=== PATIENT | male | born 1970 | race Caucasian/White ===

== ENCOUNTER 2018-11-12 15:52 | Emergency (ER) | payer MEDICAID, MEDICARE ==
[~2018-11-12] VITALS: Ht 162.6 cm; Wt 102.0 kg
[2018-11-12 16:51] LABS: BASOPHILS # (AUTO) 0.05 x10^3/uL (0-0.1); BASOPHILS % (AUTO) 1 % (0-1); EOSINOPHILS # (AUTO) 0.08 x10^3/uL (0-0.4); EOSINOPHILS % (AUTO) 1 % (1-7); LYMPHOCYTES # (AUTO) 2.27 x10^3/uL (1-3.4); LYMPHOCYTES % (AUTO) 25 % (22-44); MD NO; MEAN CORPUSCULAR VOLUME 88.2 fL (81-97); MEAN PLATELET VOLUME 7.9 fL (7.4-10.4); MONOCYTES # (AUTO) 0.47 x10^3/uL (0.2-0.8); MONOCYTES % (AUTO) 5 % (2-9); NEUTROPHILS # (AUTO) 6.21 x10^3/uL (1.8-6.8); NEUTROPHILS % (AUTO) 68 % (42-75); PLATELET COUNT 273 x10^3/uL (130-400); RED BLOOD COUNT 4.99 x10^6/uL (4.38-5.82)
--- NOTE | 2018-11-12 16:52 | NUR ---
Pt to room from lobby.
[2018-11-12 17:00] LABS: ALANINE AMINOTRANSFERASE 31 U/L (12-78); ALBUMIN 3.9 g/dL (3.4-5.0); ANION GAP 8 mmol/L (5-15); CALCIUM 8.7 mg/dL (8.5-10.1); CHLORIDE 105 mmol/L (98-107); CREATININE 0.93 mg/dL (0.7-1.3)
[2018-11-12 17:02] LABS: ALKALINE PHOSPHATASE 86 U/L (45-117); BILIRUBIN,TOTAL 0.6 mg/dL (0.2-1.0); TOTAL PROTEIN 7.2 g/dL (6.4-8.2)
--- NOTE | 2018-11-12 17:22 | NUR ---
ASSUMED CARE OF PT. PT WITH C/O INCREASED FATIGUE. 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 STATES HE NEVER GOT TREATMENT FOR THE TUMOR, BUT WAS TOLD HAVING ONE KIDNEY FULL FUNCTIONING WAS OKAY. PT DIAPHORETIC, WARM, AND PINK. MILD AMOUNT OF DISTRESS NOTED. BREATHING REGULAR AND UNLABORED. POC DISCUSSED. WILL CONTINUE TO MONITOR.
--- NOTE | 2018-11-12 17:40 | NUR ---
URINE SAMPLE COLLECT AND SENT TO LAB.
--- NOTE | 2018-11-12 18:00 | NUR ---
PT TO US VIA [facility].
[2018-11-12 18:09] LABS: CULTURE INDICATED? NO; MICROSCOPIC NOT IND
--- NOTE | 2018-11-12 19:12 | NUR ---
REPROT TO KALI FERRIS.
--- NOTE | 2018-11-12 19:15 | NUR ---
REPORT TAKEN FROM KALI ARCHER. PT SLEEPING ON GURNEY, RESPS EVEN AND UNLABORED. ALL RESULTS BACK, CHART UP FOR RECHECK. AWAITING MD AND DISPO.
[2018-11-12 19:46] VITALS: BP 154/71
--- NOTE | 2018-11-12 19:47 | NUR ---
pt given dc instructions. pt a&o, resps even and unlabored. pt has no complaint at dc. pt provided with snack, shirt and socks at dc. pt amb to dc desk with steady gait, nadn.
[2018-11-13] MEDS ORDERED: ABILIFY (01:11)
== END 2018-11-12 19:48 | disposition home or self-care (01) ==
LOC: ED 18:08
DX: N28.1 Cyst of kidney, acquired (principal); R53.83 Other fatigue
CPT/HCPCS: 36415; 76770; 80053; 81003; 83690; 85025; 99284

== ENCOUNTER 2018-11-13 00:59 | Emergency (ER) | payer SELFPAY ==
[~2018-11-13] VITALS: Ht 167.6 cm; Wt 104.3 kg
[2018-11-13 01:06] VITALS: BP 127/82
[2018-11-13] MEDS ORDERED: ABILIFY (01:11)
--- NOTE | 2018-11-13 01:13 | NUR ---
Pt ambulated to room with EDT. Pt changing into gown and placing all belongings in a belonging bag. Pt states "I'm sorry to be here again. I don't want to make the wrong decision. I had a suicide attempt before and I dont' want that again."
--- NOTE | 2018-11-13 01:19 | NUR ---
Dr. Murdock to bedside to evaluate pt. Pt states that he has been depressed since 2006, no changes today, pt denies SI/HI, pt states "I take care of my body, I would never do anything." Pt states that he has a friend here in [place] that told him to call him as soon as he is out of the ER and he will be able to go over to stay with him. Pt states that he just would like a refill of his abilify and will be safe to discharge to friend.
[2018-11-13] MEDS ORDERED: ARIPIPRAZOLE 10 MG TABLET PO ONE (01:30)
[2018-11-13] MEDS ORDERED: HALOPERIDOL 5 MG TABLET PO ONE (01:30)
[2018-11-13] MEDS ORDERED: DIPHENHYDRAMINE 25 MG CAPSULE PO ONE (01:30)
[2018-11-13] MEDS ORDERED: ARIPIPRAZOLE 10 MG TABLET ONE (01:38)
[2018-11-13] MEDS ORDERED: DIPHENHYDRAMINE 25 MG CAPSULE ONE (01:38)
[2018-11-13] MEDS ORDERED: HALOPERIDOL 5 MG TABLET ONE (01:38)
--- NOTE | 2018-11-13 01:52 | NUR ---
Pt medicated per MAR.
--- NOTE | 2018-11-13 01:54 | NUR ---
Patient/Caregiver given discharge instructions and they have confirmed that they understand the instructions. Patient ambulatory with steady gait.
== END 2018-11-13 01:54 | disposition home or self-care (01) ==
LOC: ED 01:47
DX: F31.0 Bipolar disorder, current episode hypomanic (principal); Z76.0 Encounter for issue of repeat prescription
CPT/HCPCS: 99284; Q0163